=== PATIENT | female | born 1960 | race Caucasian/White ===

== ENCOUNTER 2017-10-06 13:39 | Emergency (ER) | payer OTHER ==
[~2017-10-06] VITALS: Ht 177.8 cm; Wt 103.4 kg
[2017-10-06 13:39] VITALS: BP_SYST 141
[~2017-10-06 13:39] MED LIST: NAPR250T PO
[2017-10-06 14:29] LABS: BILIRUBIN,URINE NEGATIVE (NEGATIVE); CLARITY/URINE HAZY (CLEAR); COLOR,URINE YELLOW (YELLOW); GLUCOSE,URINE NEGATIVE (NEGATIVE); KETONES,URINE NEGATIVE (NEGATIVE); LEUKOCYTE ESTERASE ,URINE NEGATIVE (NEGATIVE); NITRITE, URINE POSITIVE (NEGATIVE); PH,URINE 5.5 (5.0-8.0); PROTEIN URINE NEGATIVE (NEGATIVE); UROBILINOGEN,URINE 0.2 (0.2-1.0)
[2017-10-06] MEDS ORDERED: ACETAMINOPHEN 500 MG TABLET PO ONE (14:30)
[2017-10-06] MEDS ORDERED: NITROGLYCERIN 1 INCH (GM) OINT. TP ONE (14:30)
[2017-10-06] MEDS ORDERED: ASPIRIN 81 MG TAB.CHEW PO ONE (14:30)
[2017-10-06 14:31] LABS: BLOOD, URINE TRACE (NEGATIVE)
[2017-10-06 14:39] LABS: BACTERIA,URINE MODERATE /HPF (None Seen); RBC,URINE 0-3 /HPF (0-3); WBC,URINE 0-3 /HPF (0-3)
[2017-10-06 14:40] LABS: BASOPHILS # (AUTO) 0.1 K/uL (0.0-0.2); BASOPHILS % (AUTO) 0.8 % (0.0-2.0); EOSINOPHILS # (AUTO) 0.2 K/uL (0.0-0.4); EOSINOPHILS % (AUTO) 1.9 % (0.0-4.0); HEMATOCRIT 40.5 % (36-48); HEMOGLOBIN 13.1 g/dL (12.0-16.0); LYMPHOCYTES # (AUTO) 1.1 K/uL (1.0-5.5); LYMPHOCYTES % (AUTO) 14.1 % (20.5-51.5); MEAN CORPUSCULAR HEMOGLOBIN 26 pg (27-31); MEAN CORPUSCULAR HGB CONC 32 % (32-36); MEAN CORPUSCULAR VOLUME 80 fL (79.0-98.0); MONOCYTES # (AUTO) 0.4 K/uL (0.0-1.0); MONOCYTES % (AUTO) 5.1 % (1.7-9.3); NEUTROPHILS # (AUTO) 6.3 K/uL (1.8-7.7); NEUTROPHILS % (AUTO) 78.1 % (40.0-70.0); PLATELET COUNT (AUTO) 276 K/uL (130-430); RED BLOOD CELL COUNT(AUTO) 5.05 MIL/uL (4.2-6.2); RED CELL DISTRIBUTION WIDTH 13.5 % (9.0-15.0); WHITE BLOOD COUNT (AUTO) 8.1 K/uL (4.8-10.8)
[2017-10-06 14:57] LABS: PROTHROMBIN TIME 9.8 SECS (9.5-12.5)
[2017-10-06 15:15] LABS: CREATININE 0.79 mg/dL (0.55-1.30); POTASSIUM 3.5 mmol/L (3.5-5.1)
[2017-10-06 15:20] LABS: ALBUMIN 3.5 g/dL (3.4-4.8); TOTAL BILIRUBIN 0.2 mg/dL (0.0-1.0)
[2017-10-06] MEDS ORDERED: IBUPROFEN 800 MG TABLET PO ONE (16:45)
[2017-10-06 17:12] VITALS: BP_SYST 143
== END 2017-10-06 17:12 | disposition home or self-care (01) ==
LOC: SED 13:39
DX: M25.512 Pain in left shoulder (principal); Z88.5 Allergy status to narcotic agent
CPT/HCPCS: 36415; 71045; 71250-TC; 74018; 80053; 81000-TC; 81025; 83880; 84484; 85025; 85610-TC; 87086; 99285

== ENCOUNTER 2019-08-20 10:39 | Emergency (ER) | payer OTHER ==
[~2019-08-20] VITALS: Ht 177.8 cm; Wt 108.4 kg
[2019-08-20 11:02] VITALS: BP_SYST 166
--- NOTE | 2019-08-20 11:30 | NUR ---
Patient to ER bed 08 to gown for evaluation. Side rails up.
--- NOTE | 2019-08-20 11:40 | NUR ---
Patient came into the ER because her right thumb is hurting. Patient had trauma on thumb by closing a gate door on her thumb. Patient has tracking going up on wrist. Patient C/O pain 4/10. Patient thumb has erythema and purple at nail bed. Patient not presenting any signs of acute distress.
[2019-08-20] MEDS ORDERED: DIPH-TET-PERTUS Vaccine 0.5 ML VIAL (ADACEL) I.M. ONE (12:00)
[2019-08-20] MEDS ORDERED: LIDOCAINE 1% 10 MG/ML, 20 ML MDV INJ ONE (12:00)
--- NOTE | 2019-08-20 12:45 | NUR ---
Dr. Mc at bedside for foreign body extraction. Patient tolerated the procedure well.
[2019-08-20] MEDS ORDERED: BACITRACIN 1 GM OINT TP ONE (13:00)
[2019-08-20 13:20] VITALS: BP_SYST 166
--- NOTE | 2019-08-20 13:20 | NUR ---
Patient given written and verbal discharge instructions and verbalizes understanding. ER MD discussed with patient the results and treatment provided. Patient in stable condition. ID arm band removed. IV catheter removed intact and dressing applied, no active bleeding. Rx of Tramadol and Keflex given. Patient educated on pain management and to follow up with PMD. Pain Scale 4/10. Opportunity for questions provided and answered. Medication side effect fact sheet provided.
== END 2019-08-20 13:20 | disposition home or self-care (01) ==
LOC: SED 10:39
DX: L03.011 Cellulitis of right finger (principal); Z88.6 Allergy status to analgesic agent
CPT/HCPCS: 10060; 73130; 90471; 90715; 99283; J2001

== ENCOUNTER 2019-10-24 22:44 | Emergency (ER) | payer OTHER ==
[~2019-10-24] VITALS: Ht 177.8 cm; Wt 108.9 kg
[2019-10-24 22:54] VITALS: BP_SYST 159
[2019-10-25] MEDS ORDERED: KETOROLAC TROMETHAMINE 30 MG VIAL IVP ONE (00:30)
[2019-10-25] MEDS ORDERED: NS 250 ML IV ONE (00:30)
[2019-10-25 01:30] LABS: CALCIUM 8.8 mg/dL (8.4-11.0); CREATININE 0.67 mg/dL (0.55-1.30); POTASSIUM 3.7 mmol/L (3.5-5.1)
[2019-10-25 01:36] LABS: ALBUMIN 3.3 g/dL (3.4-4.8); TOTAL BILIRUBIN 0.3 mg/dL (0.0-1.0)
[2019-10-25 02:36] LABS: BASOPHILS # (AUTO) 0.1 K/uL (0.0-0.2); BASOPHILS % (AUTO) 0.9 % (0.0-2.0); EOSINOPHILS # (AUTO) 0.2 K/uL (0.0-0.4); EOSINOPHILS % (AUTO) 2.8 % (0.0-4.0); HEMATOCRIT 41.7 % (36-48); HEMOGLOBIN 13.5 g/dL (12.0-16.0); LYMPHOCYTES % (AUTO) 30.6 % (20.5-51.5); MEAN CORPUSCULAR HEMOGLOBIN 27 pg (27-31); MEAN CORPUSCULAR HGB CONC 33 % (32-36); MEAN CORPUSCULAR VOLUME 82 fL (79.0-98.0); MONOCYTES # (AUTO) 0.6 K/uL (0.0-1.0); NEUTROPHILS # (AUTO) 3.8 K/uL (1.8-7.7); NEUTROPHILS % (AUTO) 56.7 % (40.0-70.0); PLATELET COUNT (AUTO) 229 K/uL (130-430); RED BLOOD CELL COUNT(AUTO) 5.05 MIL/uL (4.2-6.2); RED CELL DISTRIBUTION WIDTH 14.6 % (9.0-15.0); WHITE BLOOD COUNT (AUTO) 6.6 K/uL (4.8-10.8)
[2019-10-25 03:19] VITALS: BP_SYST 108
== END 2019-10-25 03:19 | disposition home or self-care (01) ==
LOC: SED 22:44
DX: I10 Essential (primary) hypertension (principal); R51 Headache; Z88.5 Allergy status to narcotic agent
CPT/HCPCS: 36415; 70450; 80053; 85025; 93005; 96374; 99285; J1885; J7040

== ENCOUNTER 2021-02-25 10:41 | Emergency (ER) | payer MEDICAID, OTHER ==
[~2021-02-25] VITALS: Ht 177.8 cm; Wt 108.9 kg
[2021-02-25 10:50] VITALS: BP_SYST 154
[2021-02-25] MEDS ORDERED: MECLIZINE HCL 25 MG TABLET (ANITVERT) PO ONE (11:15)
[2021-02-25 11:22] LABS: BILIRUBIN,URINE NEGATIVE (NEGATIVE); BLOOD, URINE NEGATIVE (NEGATIVE); COLOR,URINE YELLOW (YELLOW); GLUCOSE,URINE NEGATIVE (NEGATIVE); KETONES,URINE NEGATIVE (NEGATIVE); LEUKOCYTE ESTERASE ,URINE TRACE (NEGATIVE); NITRITE, URINE NEGATIVE (NEGATIVE); PROTEIN URINE NEGATIVE (NEGATIVE); UROBILINOGEN,URINE 0.2 (0.2-1.0)
[2021-02-25 11:25] LABS: CLARITY/URINE SLIGHTLY HAZY (CLEAR)
[2021-02-25 11:33] LABS: BASOPHILS # (AUTO) 0.1 K/uL (0.0-0.2); BASOPHILS % (AUTO) 1.1 % (0.0-2.0); EOSINOPHILS # (AUTO) 0.2 K/uL (0.0-0.4); EOSINOPHILS % (AUTO) 2.1 % (0.0-4.0); HEMATOCRIT 42.1 % (36-48); HEMOGLOBIN 13.8 g/dL (12.0-16.0); LYMPHOCYTES # (AUTO) 2.1 K/uL (1.0-5.5); LYMPHOCYTES % (AUTO) 24.1 % (20.5-51.5); MEAN CORPUSCULAR HEMOGLOBIN 27 pg (27-31); MEAN CORPUSCULAR HGB CONC 33 % (32-36); MEAN CORPUSCULAR VOLUME 83 fL (79.0-98.0); MONOCYTES # (AUTO) 0.7 K/uL (0.0-1.0); MONOCYTES % (AUTO) 8.1 % (1.7-9.3); NEUTROPHILS # (AUTO) 5.6 K/uL (1.8-7.7); NEUTROPHILS % (AUTO) 64.6 % (40.0-70.0); PLATELET COUNT (AUTO) 244 K/uL (130-430); RED BLOOD CELL COUNT(AUTO) 5.11 MIL/uL (4.2-6.2); RED CELL DISTRIBUTION WIDTH 14.7 % (9.0-15.0); WHITE BLOOD COUNT (AUTO) 8.7 K/uL (4.8-10.8)
[2021-02-25 11:35] LABS: BACTERIA,URINE RARE /HPF (None Seen); MUCUS,URINE 1+ /LPF (None Seen); RBC,URINE NONE SEEN /HPF (0-3); URINE AMORPHOUS PHOSPHATES 1+ /HPF (None Seen); WBC,URINE 0-3 /HPF (0-3)
[2021-02-25 11:36] LABS: CREATININE 0.76 mg/dL (0.55-1.30); POTASSIUM 4.2 mmol/L (3.5-5.1)
[2021-02-25 11:38] LABS: PROTHROMBIN TIME 9.9 SECS (9.5-12.5)
[2021-02-25 11:42] LABS: ALBUMIN 3.4 g/dL (3.4-4.8); TOTAL BILIRUBIN 0.2 mg/dL (0.0-1.0)
[2021-02-25] MEDS ORDERED: MECL-103 PO (14:28)
[2021-02-25 14:43] VITALS: BP_SYST 154
== END 2021-02-25 14:40 | disposition home or self-care (01) ==
LOC: SED 10:41
DX: H81.399 Other peripheral vertigo, unspecified ear (principal); I10 Essential (primary) hypertension; Z88.5 Allergy status to narcotic agent; Z79.899 Other long term (current) drug therapy
CPT/HCPCS: 36415; 70450; 71045; 76376; 80053; 81000; 84484; 85025; 85610; 85730; 93005; 99285; J8597